=== PATIENT | female | born 1990 | race Caucasian/White ===

== ENCOUNTER 2024-05-03 06:20 | Day surgery (SDC) | payer BC, SELFPAY | END 2024-05-03 10:47 | disposition home or self-care (01) | LOC: GI 06:20 | PROVIDERS: ATTENDING PHYSICIAN Internal Medicine Gastroenterology | DX: Z12.11 Encounter for screening for malignant neoplasm of colon (principal); Z86.0101 Personal history of adenomatous and serrated colon polyps; K63.5 Polyp of colon; K62.1 Rectal polyp; Z83.719 Family history of colon polyps, unspecified; K57.30 Diverticulosis of large intestine without perforation or abscess without bleeding; R12 Heartburn; K21.00 Gastro-esophageal reflux disease with esophagitis, without bleeding; K44.9 Diaphragmatic hernia without obstruction or gangrene | CPT/HCPCS: 45385; 43235; 88305 ==